=== PATIENT | female | born 1995 | race Caucasian/White ===

== ENCOUNTER 2017-01-04 11:43 | Emergency (ER) | payer BC ==
--- NOTE | ~2017-01-04 | EKG ---
PATIENT: BENI SALDANA UNIT #: [id number] Ventricular Rate: 64 BPM Atrial Rate: 64 BPM P-R Interval: 144 ms QRS Duration: 98 ms Q-T Interval: 424 ms QTC Calculation(Bezet): 437 ms P Cameron: 67 degrees Calculated R Cameron: 74 degrees Calculated T Cameron: 20 degrees Diagnosis Line: Normal sinus rhythm Diagnosis Line: Incomplete right bundle branch block Diagnosis Line: Borderline ECG Diagnosis Line: No previous ECGs available Diagnosis Line: Confirmed by ABIGAIL RANKIN MD ([id number]) on Diagnosis Line: 01/07/2017 4:00:07 PM INTERPRETING MD: MASSIEL CRISTINA
--- NOTE | ~2017-01-04 | CR72 ---
[facility] A Service of [facility] & [facility] RADIOLOGY TEXT RESULTS PATIENT: BENI SALDANA LOCATION: [facility] : [birth year] UNIT #: [id number] AGE: [address]: Demetrius Montes De Oca MD SEX: F ORDER DR: [id number] [facility] [address] [place], [place] [address] [id number] E MR#: [id number] Acc #: [id number] NAME: BENI SALDANA. : 1995 SEX: F STUDY DATE/TIME: 01/04/2017 11:39 UNIT: [facility] ROOM: STUDY DESCRIPTION: CR Chest Single View Portable Attending Physician: Demetrius Montes De Oca M.D. Ordering Physician: Demetrius Montes D eOca M.D. Primary Care Physician: Tim Little M.D. MEDICAL IMAGING REPORT This report is preliminary unless electronic signature is present EXAM Chest x-ray single view portable HISTORY Headache, dizzy short of air, nausea. Depo shot 12/17/2016. History of asthma. Currently complains of nausea and vomiting. COMMENT Single frontal portable view of the chest timed 11:39 01/04/2017 reviewed. There is a prior 12/14/2008. Heart size is normal. No acute-appearing parenchymal infiltrate acute congestive failure, pneumothorax or pleural effusion. IMPRESSION No active disease. Dictated by... Yenny Spencer M.D. THIS IS AN ELECTRONICALLY VERIFIED REPORT Yenny Spencer M.D. at 01/05/2017 6:20 AM TATO/sergio TD: 01/05/2017 01:26 JOB #: [id number] MEDICAL IMAGING REPORT COPY
[2017-01-04 10:14] LABS: URINE SOURCE CLEAN CATCH
[2017-01-04 10:20] LABS: URINE APPEARANCE CLEAR; URINE BILIRUBIN NEG (NEG); URINE BLOOD NEG (NEG); URINE COLOR YELLOW; URINE GLUCOSE NEG (NEG); URINE KETONE NEG (NEG); URINE LEUKOCYTE ESTERASE NEG (NEG); URINE NITRATE NEG (NEG); URINE PH 5.5 (5-8); URINE PROTEIN NEG (NEG); URINE SPECIFIC GRAVITY 1.027 (1.003-1.035); URINE UROBILINOGEN 0.2 MG/DL (NEG)
[2017-01-04 10:25] LABS: CULTURE INDICATED? NO
[~2017-01-04 11:43] MED LIST: LORTAB 10-5001 EACH PO; PHENERGAN SUPP25 MG PR; TOPAMAX PO; YAZ 28 TABLET1 TAB PO; ZOFRAN ODT4 MG PO
== END 2017-01-04 12:10 | disposition home or self-care (01) ==
LOC: CED 11:43
PROVIDERS: Emergency Medicine
DX: R42 Dizziness and giddiness (principal); R11.0 Nausea; T38.5X5A Adverse effect of other estrogens and progestogens, initial encounter; F32.9 Major depressive disorder, single episode, unspecified
CPT/HCPCS: 36415; 71010; 81003; 84703; 93005; 99284